=== PATIENT | male | born 1960 | race Caucasian/White ===

== ENCOUNTER → 2016-09-27 | Outpatient (CLI) | payer BC ==
[2016-09-27 15:38] LABS: HEMOGLOBIN 15.8 g/dL (14.1-18.0); LYMPH # 2.4 K/mm3 (0.7-4.5); LYMPH % 27.3 % (10-50)
[2016-09-27 17:43] LABS: BUN 13 mg/dL (7-18)
[2016-09-27 18:12] LABS: GFR (ESTIMATED) 101 ML/MIN (>60)
== END ==
LOC: LAB 15:16
PROVIDERS: Surgery
DX: Z01.818 Encounter for other preprocedural examination (principal)